=== PATIENT | male | born 1975 | race Hispanic/Latino ===

== ENCOUNTER 2020-10-12 10:31 | Outpatient (CLI) | payer OTHER ==
--- NOTE | 2020-10-12 11:45 | XRay Report ---
BILATERAL TIBIA AND FIBULA 9 VIEWS INDICATION / CLINICAL INFORMATION: TIB/FIB BILATERAL PAIN. COMPARISON: None available. FINDINGS: An intramedullary nail is present in the left tibia across a healed fracture of the distal tibia. The re is an old healed distal fibular fracture as well. Severe degenerative changes seen in the right hi ndfoot. No other significant skeletal abnormality Signer Name: Lucien ARTHUR Signed: 10/12/2020 11:40 AM Workstation Name: [id number]
--- NOTE | 2020-10-12 11:46 | XRay Report ---
BILATERAL FEET 4 VIEWS INDICATION / CLINICAL INFORMATION: BILATERAL KNEE. COMPARISON: None available. 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 Subluxation of multiple toes on the left foot with old healed metatarsal fractures. Signer Name: Lucien Villasenor MD FACCatalino Signed: 10/12/2020 11:41 AM Workstation Name: [id number]
== END 2020-10-12 10:32 | disposition home or self-care (01) ==
LOC: XRAY 10:31
PROVIDERS: ATTEND Internal Medicine
DX: M19.071 Primary osteoarthritis, right ankle and foot (principal); M79.661 Pain in right lower leg; M79.662 Pain in left lower leg

== ENCOUNTER 2021-10-09 09:30 | Outpatient (CLI) | payer OTHER ==
--- NOTE | 2021-10-09 11:24 | XRay Report ---
LUMBOSACRAL SPINE 3 VIEWS INDICATION: BACK PAIN. COMPARISON: None. IMPRESSION: There is been previous internal fixation of a left sacral fracture with 2 orthopedic scr ews, correlate with history. Mild osteopenia is suspected. The disc spaces appear preserved througho ut the lumbar region. There is mild facet arthropathy at L3-4, L4-5 and L5-S1. No acute osseous or s oft tissue abnormality. BILATERAL HIPS 2 VIEWS INDICATION: Bilateral hip pain. COMPARISON: None. IMPRESSION: Chronic internally fixated left sacral fracture is again noted. Chronic healed fracture of the left inferior pubic ramus is identified. On the right side, the inferior pubic ramus is displa stephen inferiorly approximately 3 cm. This appears to represent a chronic avulsion injury. Please correl ate with the patient's history. There is also been previous internal fixation of the left femoral sha ft which is partially imaged. There is no evidence for acute fracture or bone lesion. No significant degenerative changes are identified at the hip joints. No osteonecrosis. Signer Name: Kristian Bruner Jr, MD Signed: 10/09/2021 11:19 AM Workstation Name: [id number]
== END 2021-10-09 09:31 | disposition home or self-care (01) ==
LOC: XRAY 09:30
PROVIDERS: ATTEND Internal Medicine
DX: M47.817 Spondylosis without myelopathy or radiculopathy, lumbosacral region (principal); T14.90XA Injury, unspecified, initial encounter; X58.XXXA Exposure to other specified factors, initial encounter
CPT/HCPCS: 72100; 73521